=== PATIENT | male | born 1940 | race African-American/Black ===

== ENCOUNTER 2021-06-07 01:02 | Emergency (ER) | payer OTHER, MEDICAID ==
[~2021-06-07] VITALS: Ht 182.9 cm; Wt 77.0 kg
[2021-06-07] MEDS ORDERED: HYDROCODONE/ACETAMINOPHEN 5/325MG TABLET PO ONE (01:30)
[2021-06-07 02:04] VITALS: BP 122/82
[2021-06-07 03:11] LABS: CLARITY URINE CLEAR (CLEAR); COLOR URINE YELLOW (YELLOW); KETONES URINE NEGATIVE (NEGATIVE); LEUKOCYTE ESTERASE URINE NEGATIVE (NEGATIVE); NITRITE URINE NEGATIVE (NEGATIVE); OCCULT BLOOD URINE 2+ (NEGATIVE); PH URINE 7.5 (4.5-8.0); PROTEIN URINE NEGATIVE (NEGATIVE); SPECIFIC GRAVITY URINE 1.009 (1.005-1.030)
[2021-06-07 04:30] LABS: BASOPHILS % 1.2 % (0.0-2.0); EOSINOPHILS % 0.6 % (0.0-5.0); HEMATOCRIT. 38.7 % (42.0-52.0); HEMOGLOBIN. 12.9 g/dL (14.0-18.0); LYMPHOCYTES % 22.3 % (20.0-50.0); MEAN CORPUSCULAR HEMOGLOBIN 29.5 pg (28.0-32.0); MEAN PLATELET VOLUME 7.2 fl (7.4-10.4); MONOCYTES % 13.6 % (2.0-8.0); NEUTROPHILS % 62.3 % (40.0-76.0); PLATELET 240 x1000/uL (130-400); RED BLOOD CELL COUNT 4.39 mill/uL (4.7-6.1); RED CELL DISTRIBUTION WIDTH 16.3 % (11.6-14.6)
[2021-06-07 04:37] LABS: CHLORIDE 100 mEq/L (98-107)
== END 2021-06-07 05:37 | disposition home or self-care (01) ==
LOC: ER 01:02
DX: N40.1 Benign prostatic hyperplasia with lower urinary tract symptoms (principal); R33.8 Other retention of urine; I10 Essential (primary) hypertension; J44.9 Chronic obstructive pulmonary disease, unspecified
CPT/HCPCS: 36415; 80053; 81003; 85025; 99283

== ENCOUNTER 2021-06-14 20:08 | Emergency (ER) | payer OTHER, MEDICAID ==
[~2021-06-14] VITALS: Ht 180.3 cm; Wt 82.0 kg
[2021-06-14] MEDS ORDERED: TAMS-11 MT (22:12)
[2021-06-14] MEDS ORDERED: TAMSULOSIN HCL 0.4MG SR CAPSULE PO ONE (22:15)
== END 2021-06-15 01:18 | disposition home or self-care (01) ==
LOC: ER 20:08
DX: R33.9 Retention of urine, unspecified (principal); Z46.6 Encounter for fitting and adjustment of urinary device
CPT/HCPCS: 93005; 99283